=== PATIENT | female | born 1960 | race Asian ===

== ENCOUNTER 2019-03-08 17:05 | Emergency (ER) | payer MEDICARE, MEDICAID ==
[~2019-03-08] VITALS: Ht 152.4 cm; Wt 59.1 kg
[2019-03-08 23:35] VITALS: BP 132/85
== END 2019-03-08 23:35 | disposition home or self-care (01) ==
LOC: EMS 17:05 → EDUNIT# 17:05 → EMS 23:35
DX: S00.03XA Contusion of scalp, initial encounter (principal); V43.52XA Car driver injured in collision with other type car in traffic accident, initial encounter; Y93.89 Activity, other specified; Y92.89 Other specified places as the place of occurrence of the external cause; Y99.8 Other external cause status